=== PATIENT | female | born 1985 | race Caucasian/White ===

== ENCOUNTER 2016-06-05 11:24 | Inpatient (IN) | payer OTHER ==
[2016-06-05 11:46] VITALS: BMI 39.0
[2016-06-05] MEDS ORDERED: PNEUMOC 13-VAL CONJ-DIP CRM/PF 0.5 ML DISP.SYRIN IM ONE (12:50)
--- NOTE | 2016-06-05 14:00 | HP ---
COWS - Scale Resting Pulse: 1= [place] 81-100 Sweatin=Flushed/Facial Moisture Restless Observation: 1= Difficult to Sit Still Pupil Size: 0= Normal to Room Light Bone or Joint Aches: 2= Severe Diffuse Aches Runny Nose/ Eye Tearin= Runny Nose/Eyes GI Upset > 30mins: 1= Stomach Cramp Tremor Observation: 2= Slight Tremor Visible Yawning Observation: 2= >3x During Session Anxiety or Irritability: 2=Irritable/Anxious Goose Flesh Skin: 3=Piloerection COWS Score: 18 Admission ROS BHS - HPI Chief Complaint: I need to stop before i get in too deep. Allergies/Adverse Reactions: Allergies Allergy/AdvReac Type Severity Reaction Status Date / Time cyclobenzaprine HCl AdvReac Verified 06/05/16 13:51 [From Flexeril] kiwi AdvReac Verified 06/05/16 13:51 History of Present Illness: pt is a 31yr old female with a history of opioid dependence first time in detox seeking for treatment. Exam Limitations: No Limitations - Ebola screening Have you traveled outside of the country in the last 21 days: No Have you had contact with anyone from an Ebola affected area: No Have you been sick,other than usual withdrawal symptoms: No Do you have a fever: No - Review of Systems Constitutional: Chills, Diaphoresis, Loss of Appetite, Night Sweats, Changes in sleep, Unintentional Wgt. Loss EENT: reports: Tearing, Nose Congestion Respiratory: reports: Cough Cardiac: reports: Lightheadedness GI: reports: Diarrhea, Poor Appetite, Poor Fluid Intake : reports: No Symptoms Reported Musculoskeletal: reports: Back Pain Integumentary: reports: Flushing, Sweating Neuro: reports: Headache, Tingling, Tremors, Weakness Endocrine: reports: Excessive Sweating, Flushing, Intolerance to Cold, Intolerance to Heat Hematology: reports: Anemia Psychiatric: reports: Judgement Intact, Mood/Affect Appropiate, Orientated x3, Agitated, Anxious Other Systems: Reviewed and Negative Patient History - Patient Medical History Hx Anemia: Yes Hx Asthma: No Hx Chronic Obstructive Pulmonary Disease (COPD): No Hx Cancer: No Hx Cardiac Disorders: No Hx Congestive Heart Failure: No Hx Hypertension: No Hx Hypercholesterolemia: No Hx Pacemaker: No HX Cerebrovascular Accident: No Hx Seizures: No Hx Dementia: No Hx Diabetes: No Hx Gastrointestinal Disorders: No Hx Liver Disease: No Hx Genitourinary Disorders: No Hx Sexually Transmitted Disorders: No Hx Renal Disease (ESRD): No Hx Thyroid Disease: No Hx Human Immunodeficiency Virus (HIV): No (negative) Hx Hepatitis C: No (negative) Hx Depression: Yes Hx Suicide Attempt: No (denies) Hx Schizophrenia: Yes - Patient Surgical History Past Surgical History: Yes Hx Section: Yes Other Surgical History: gall bladder removal Anesthesia Reaction: No - PPD History Previous Implant?: No Documented Results: Negative w/o proof Implanted On Prior R Admission?: No PPD to be Administered?: Yes - Reproductive History Patient is a Female of Child Bearing Age (11 -55 yrs old): Yes Last Menstrual Period: 05/07/16 Patient : No - Smoking Cessation Smoking history: Current every day smoker Have you smoked in the past 12 months: Yes Aproximately how many cigarettes per day: 20 Hx Chewing Tobacco Use: No Initiated information on smoking cessation: Yes 'Breaking Loose' booklet given: 06/05/16 - Substance & Tx. History Hx Substance Use: Yes Substance Use Type: Heroin, Marijuana Hx Substance Use Treatment: Yes - Substances Abused Percocet Route: Oral Frequency: Daily Amount used: 50mg daily Age of first use: 30 Date of Last Use: 06/05/16 Marijuana Route: Smoking Frequency: Daily Amount used: 2 joints daily Age of first use: 26 Date of Last Use: 06/04/16 Family Disease History - Family Disease History Family Disease History: Heart Disease: Father, [place]: Grandparent (stomach [place]) Admission Physical Exam S - Vital Signs Vital Signs: Vital Signs - 24 hr 06/05/16 11:34 Temperature 98.2 F Pulse Rate 90 Respiratory 20 Rate Blood Pressure 126/65 - Physical General Appearance: Yes: Appropriately Dressed, Moderate Distress, Tremorous, Irritable, Sweating, Anxious HEENTM: Yes: Normal Voice, Nasal Congestion Respiratory: Yes: Lungs Clear, Normal Breath Sounds, No Respiratory Distress Neck: Yes: No masses,lesions,Nodules Breast: Yes: Within Normal Limits Cardiology: Yes: Regular Rhythm, Regular Rate, S1, S2 Abdominal: Yes: Normal Bowel Sounds, Non Tender, Soft Genitourinary: Yes: Within Normal Limits Back: Yes: Normal Inspection Musculoskeletal: Yes: full range of Motion Extremities: Yes: Normal Capillary Refill, Normal Inspection, Non-Tender, Tremors Neurological: Yes: Fully Oriented, Alert, Normal Response Integumentary: Yes: Within Normal Limits, Normal Color, Clammy, Diaphoresis Lymphatic: Yes: Within Normal Limits Cleared for Admission [facility] - Detox or Rehab [facility] Level of Care: Medically Managed Detox Regimen/Protocol: Methadone [facility] Breath Alcohol Content Breath Alcohol Content: 0 Urine Pregancy Test - Result Urine Test Results: Negative- NO Line Present Urine Drug Screen - Results Drug Screen Negative: No Urine Drug Screen Results: THC-Marijuana, BZO-Benzodiazepines, OXY-Oxycodone
[2016-06-05] MEDS ORDERED: diphenhydrAMINE HCL 50 MG CAPSULE PO PRN (14:19)
[2016-06-05] MEDS ORDERED: MAG HYDROX/AL HYDROX/SIMETH 30 ML UNIT-DOSE CUP PO PRN (14:19)
[2016-06-05] MEDS ORDERED: MAGNESIUM HYDROX 2400MG/30ML ORAL SUSPENSION 30 ML CUP PO PRN (14:19)
[2016-06-05] MEDS ORDERED: NICOTINE POLACRILEX 4 MG GUM BUC PRN (14:19)
[2016-06-05] MEDS ORDERED: MAGNESIUM CITRATE 300 ML BOTTLE PO PRN (14:19)
[2016-06-05] MEDS ORDERED: LOPERAMIDE HCL 2 MG CAPSULE PO PRN (14:19)
[2016-06-05] MEDS ORDERED: P-EPHED 60MG/TRIPROLIDI 2.5MG TABLET PO PRN (14:19)
[2016-06-05] MEDS ORDERED: MENTHOL/PHENOL 1 EACH UD MM PRN (14:19)
[2016-06-05] MEDS ORDERED: ACETAMINOPHEN 325 MG TABLET (FP) PO PRN (14:19)
[2016-06-05] MEDS ORDERED: guaiFENesin/D-METHORPHAN HB 10 ML UNIT-DOSE CUPS PO PRN (14:19)
[2016-06-05] MEDS ORDERED: METHADONE HCL 10 MG TABLET (FOR DETOX USE ONLY) PO ONE ×2 (15:16→23:00)
[2016-06-05] MEDS: diazePAM 5 MG TABLET PO PRN ×2 (15:38→22:33)
--- NOTE | 2016-06-05 16:06 | EKG ---
Test Reason : Blood Pressure : / mmHG Vent. Rate : 082 BPM Atrial Rate : 082 BPM P-R Int : 172 ms QRS Dur : 084 ms QT Int : 362 ms P-R-T Axes : 043 050 038 degrees QTc Int : 422 ms NORMAL SINUS RHYTHM NORMAL ECG NO PREVIOUS ECGS AVAILABLE Confirmed by DELMY LYNNE MD ([id number]) on 06/05/2016 4:06:24 PM Referred By: John Dukes Confirmed By:DELMY LYNNE MD
--- NOTE | 2016-06-05 17:35 | CONSULT ---
[facility] Psychiatric Consult - Data Date of interview: 06/05/16 Admission source: [facility] Identifying data: First admission to [facility] for this 31 y/o female seeking detox treatment on for opioid and marijuana dependence.Patient is single,a mother of two,domiciled,unemployed and supported on food stamps. Substance Abuse History: - Smoking Cessation. Smoking history: Current every day smoker. Have you smoked in the past 12 months: Yes. Aproximately how many cigarettes per day: 20. Hx Chewing Tobacco Use: No. Initiated information on smoking cessation: Yes. 'Breaking Loose' booklet given: 06/05/16. - Substance & Tx. History. Hx Substance Use: Yes. Substance Use Type: Heroin, Marijuana. Hx Substance Use Treatment: Yes. - Substances Abused. Percocet. Route: Oral. Frequency: Daily. Amount used: 50mg daily. Age of first use: 30. Date of Last Use: 06/05/16. Marijuana. Route: Smoking. Frequency: Daily. Amount used: 2 joints daily. Age of first use: 26. Date of Last Use: . Confirmed by patient in this interview. Medical History: Remarkable for a history of anemia,sickle cell trait and osteoarthritis.Noted past history of cholecystectomy and sections. Psychiatric History: No reported history of psychiatric hospitalizations.Patient states that she was under the care of a private psychiatrist "for a while" until a year ago.Ms Aguilera indicates the diagnosis of " bipolar or schizophrenia ".Has not been on medications for several months ( no recall of names).No particular issue endorsed except for chronic insomnia ( patient remembers zolpidem as an effective remedy).No history of suicide attempts. Physical/Sexual Abuse/Trauma History: Patient denies. Additional Comment: Urine Drug Screen Results: THC-Marijuana, BZO- Benzodiazepines, OXY-Oxycodone.Noted. Mental Status Exam - Mental Status Exam Alert and Oriented to: Time, Place, Person Cognitive Function: Good Patient Appearance: Well Groomed Mood: Hopeful, Euthymic Affect: Appropriate, Normal Range Patient Behavior: Talkative, Appropriate, Cooperative Speech Pattern: Clear, Appropriate Voice Loudness: Normal Thought Process: Intact, Goal Oriented Thought Disorder: Not Present Hallucinations: Denies Suicidal Ideation: Denies Homicidal Ideation: Denies Insight/Judgement: Fair Sleep: Poorly, Difficulty falling asleep Muscle strength/Tone: Normal Gait/Station: Normal Psychiatric Findings - Problem List ([place] 1, 2,3) (1) Opioid dependence Current Visit: Yes Status: Acute (2) Nicotine dependence Current Visit: Yes Status: Acute (3) Cannabis dependence Current Visit: Yes Status: Acute (4) Insomnia Current Visit: Yes Status: Acute - Initial Treatment Plan Initial Treatment Plan: Psychoeducation.Detoxification.Ambien 5 mg po hs prn.Patient made aware of risk of parasomnias.She agrees with plan.Observation.
[2016-06-05 20:11] LABS: URINE APPEARANCE SLCLOUDY; URINE BILIRUBIN NEGATIVE (NEGATIVE); URINE BLOOD NEGATIVE (NEGATIVE); URINE COLOR DKYELLOW; URINE GLUCOSE (UA) NEGATIVE (NEGATIVE); URINE KETONE TRACE (NEGATIVE); URINE LEUK ESTERASE NEGATIVE (NEGATIVE); URINE NITRITE NEGATIVE (NEGATIVE); URINE PROTEIN NEGATIVE (NEGATIVE); URINE UROBILINOGEN NEGATIVE E.U./dl (0.2-1.0)
[2016-06-05] MEDS: ZOLPIDEM TARTRATE 5 MG TABLET PO PRN (22:32)
[2016-06-05] MEDS: THIAMINE HCL 100 MG TABLET (FP) PO SCH (22:33)
[2016-06-06 09:25] LABS: HIV 1 & 2 AB NEGATIVE; HIV 1 AGp24 NEGATIVE
[2016-06-06] MEDS ORDERED: METHADONE HCL 10 MG TABLET (FOR DETOX USE ONLY) PO ONE (10:00)
[2016-06-06 10:11] LABS: MCH 25.2 pg (25.7-33.7); MCHC 32.4 g/dl (32.0-36.0); MEAN CELL VOLUME 77.7 fl (80-96); PLATELET COUNT 297 K/MM3 (134-434); RDW 16.6 % (11.6-15.6); WHITE BLOOD COUNT 9.7 K/mm3 (4.0-10.0)
[2016-06-06] MEDS: diazePAM 5 MG TABLET PO PRN ×3 (10:22→22:22)
[2016-06-06] MEDS: PRENATAL VITAMINS W/ FOLIC ACID TABLET (FP) PO SCH (10:22)
[2016-06-06] MEDS: NICOTINE 21 MG/24 HOURS TOPICAL PATCH TD SCH (10:23)
[2016-06-06] MEDS ORDERED: LIDOCAINE 5% TOPICAL PATCH TP ONE (10:26)
[2016-06-06 10:53] LABS: ALBUMIN 3.9 g/dl (3.4-5.0); ALK PHOS 63 U/L (45-117); ANION GAP 9 (8-16); BILIRUBIN,TOTAL 0.4 mg/dL (0.2-1.0); CALCIUM 8.9 mg/dL (8.5-10.1); CO2 22 mmol/L (21-32); CREATININE 0.5 mg/dL (0.55-1.02); GLUCOSE,RANDOM 94 mg/dL (74-106); SGOT/AST 16 U/L (15-37); SGPT/ALT 20 U/L (12-78)
--- NOTE | 2016-06-06 11:57 | PN ---
[facility] CIWA - CIWA Score Nausea/Vomitin Muscle Tremors: 3 Anxiety: 3 Agitation: 2 Paroxysmal Sweats: 2 Orientation: 0-Oriented Tacttile Disturbances: 2-Mild Itch/Numbness/Burn Auditory Disturbances: 0-None Visual Disturbances: 0-None Headache: 0-None Present CIWA-Ar Total Score: 15 S Progress Note (SOAP) Subjective: interrupted sleep, lbp, diarrhea Objective: 06/06/16 11:54 Vital Signs Temperature 98.2 F 06/06/16 09:39 Pulse Rate 89 06/06/16 09:39 Respiratory Rate 18 06/06/16 09:39 Blood Pressure 126/72 06/06/16 09:39 O2 Sat by Pulse Oximetry (%) Laboratory Tests 06/05/16 06/05/16 06/06/16 13:10 19:00 05:50 WBC 9.7 RBC 4.29 Hgb 10.8 Hct 33.3 MCV 77.7 L MCHC 32.4 RDW 16.6 H Plt Count 297 MPV 10.0 Sodium Potassium Chloride Carbon Dioxide Anion Gap BUN Creatinine Creat Clearance w eGFR Random Glucose Calcium Total Bilirubin AST ALT Alkaline Phosphatase Total Protein Albumin Urine Color Dkyellow Urine Appearance Slcloudy Urine pH 5.0 Ur Specific [place] 1.033 Urine Protein Negative Urine Glucose (UA) Negative Urine Ketones Trace H Urine Blood Negative Urine Nitrite Negative Urine Bilirubin Negative Urine Urobilinogen Negative Ur Leukocyte Esterase Negative RPR Titer HIV 1&2 Antibody Screen Negative HIV P24 Antigen Negative 06/06/16 06/06/16 05:50 05:50 WBC RBC Hgb Hct MCV MCHC RDW Plt Count MPV Sodium 139 Potassium 3.9 Chloride 108 H Carbon Dioxide 22 Anion Gap 9 BUN 10 Creatinine 0.5 L Creat Clearance w eGFR > 60 Random Glucose 94 Calcium 8.9 Total Bilirubin 0.4 AST 16 ALT 20 Alkaline Phosphatase 63 Total Protein 8.0 Albumin 3.9 Urine Color Urine Appearance Urine pH Ur Specific [place] Urine Protein Urine Glucose (UA) Urine Ketones Urine Blood Urine Nitrite Urine Bilirubin Urine Urobilinogen Ur Leukocyte Esterase RPR Titer Nonreactive HIV 1&2 Antibody Screen HIV P24 Antigen pt aox3 in nad ambulating 06/06/16 11:56 Assessment: 06/06/16 11:55 withdrawl sx's lbp anemia 06/06/16 11:56 Plan: cont. detox increase fluids motrin prn imodium prn feso4 325g /d
[2016-06-06] MEDS ORDERED: INFLUENZA VACCINE 45 MCG/0.5 ML (MDV 16-17) IM ONE (12:00)
[2016-06-06] MEDS ORDERED: PNEUMOCOCCAL 23 VACCINE 0.5 ML VIAL IM ONE (12:00)
[2016-06-06] MEDS: ZOLPIDEM TARTRATE 5 MG TABLET PO PRN (22:22)
[2016-06-06] MEDS: THIAMINE HCL 100 MG TABLET (FP) PO SCH (22:22)
[2016-06-07] MEDS ORDERED: METHADONE HCL 5 MG TABLET (FOR DETOX USE ONLY) PO ONE (10:00)
[2016-06-07] MEDS: FERROUS SO4 325 MG TABLET (FP) PO SCH (10:38)
[2016-06-07] MEDS: PRENATAL VITAMINS W/ FOLIC ACID TABLET (FP) PO SCH (10:38)
[2016-06-07] MEDS: diazePAM 5 MG TABLET PO PRN ×2 (10:38→15:13)
[2016-06-07] MEDS: NICOTINE 21 MG/24 HOURS TOPICAL PATCH TD SCH (10:38)
[2016-06-07] MEDS: LIDOCAINE 5% TOPICAL PATCH TP SCH (11:03)
--- NOTE | 2016-06-07 11:42 | PN ---
BHS COWS - Scale Resting Pulse: 1= [place] 81-100 Sweatin=Flushed/Facial Moisture Restless Observation: 1= Difficult to Sit Still Pupil Size: 0= Normal to Room Light Bone or Joint Aches: 2= Severe Diffuse Aches Runny Nose/ Eye Tearin= Nasal Congestion GI Upset > 30mins: 1= Stomach Cramp Tremor Observation of Outstretched Hands: 2= Slight Tremor Visible Yawning Observation: 0= None Anxiety or Irritability: 2=Irritable/Anxious Goose Flesh Skin: 0=Smooth Skin COWS Score: 12 BHS Progress Note (SOAP) Subjective: agitation irritable sweats interrupted sleep Objective: 06/07/16 11:40 Vital Signs Temperature 97.9 F 06/07/16 09:43 Pulse Rate 97 H 06/07/16 09:43 Respiratory Rate 18 06/07/16 09:43 Blood Pressure 124/74 06/07/16 09:43 O2 Sat by Pulse Oximetry (%) Laboratory Tests 06/05/16 06/05/16 06/06/16 13:10 19:00 05:50 WBC 9.7 RBC 4.29 Hgb 10.8 Hct 33.3 MCV 77.7 L MCHC 32.4 RDW 16.6 H Plt Count 297 MPV 10.0 Sodium Potassium Chloride Carbon Dioxide Anion Gap BUN Creatinine Creat Clearance w eGFR Random Glucose Calcium Total Bilirubin AST ALT Alkaline Phosphatase Total Protein Albumin Urine Color Dkyellow Urine Appearance Slcloudy Urine pH 5.0 Ur Specific [place] 1.033 Urine Protein Negative Urine Glucose (UA) Negative Urine Ketones Trace H Urine Blood Negative Urine Nitrite Negative Urine Bilirubin Negative Urine Urobilinogen Negative Ur Leukocyte Esterase Negative RPR Titer HIV 1&2 Antibody Screen Negative HIV P24 Antigen Negative 06/06/16 06/06/16 05:50 05:50 WBC RBC Hgb Hct MCV MCHC RDW Plt Count MPV Sodium 139 Potassium 3.9 Chloride 108 H Carbon Dioxide 22 Anion Gap 9 BUN 10 Creatinine 0.5 L Creat Clearance w eGFR > 60 Random Glucose 94 Calcium 8.9 Total Bilirubin 0.4 AST 16 ALT 20 Alkaline Phosphatase 63 Total Protein 8.0 Albumin 3.9 Urine Color Urine Appearance Urine pH Ur Specific [place] Urine Protein Urine Glucose (UA) Urine Ketones Urine Blood Urine Nitrite Urine Bilirubin Urine Urobilinogen Ur Leukocyte Esterase RPR Titer Nonreactive HIV 1&2 Antibody Screen HIV P24 Antigen awake/alert ambulating no acute distress Assessment: 06/07/16 11:40 withdrawal sx Plan: continue detox increase fluids
[2016-06-07] MEDS ORDERED: ZOLPIDEM TARTRATE 10 MG TABLET (PARK CARE ONLY) PO PRN (12:21)
[2016-06-07] MEDS: hydrOXYzine PAMOATE 50 MG CAPSULE (FP) PO PRN (14:06)
[2016-06-07] MEDS: IBUPROFEN 400 MG TABLET (FP) PO PRN (14:07)
[2016-06-07] MEDS: THIAMINE HCL 100 MG TABLET (FP) PO SCH (22:29)
[2016-06-08] MEDS ORDERED: METHADONE HCL 5 MG TABLET (FOR DETOX USE ONLY) PO ONE (10:00)
[2016-06-08] MEDS: PRENATAL VITAMINS W/ FOLIC ACID TABLET (FP) PO SCH (10:18)
[2016-06-08] MEDS: FERROUS SO4 325 MG TABLET (FP) PO SCH (10:18)
[2016-06-08] MEDS: NICOTINE 21 MG/24 HOURS TOPICAL PATCH TD SCH (10:19)
[2016-06-08] MEDS: LIDOCAINE 5% TOPICAL PATCH TP SCH (10:20)
[2016-06-08] MEDS: diazePAM 5 MG TABLET PO PRN (10:20)
--- NOTE | 2016-06-08 13:05 | PN ---
BHS Progress Note (SOAP) Subjective: FEELING GOOD, WANTS TO LEAVE TOMORROW Objective: 06/08/16 13:03 Vital Signs Temperature 97.9 F 06/08/16 10:09 Pulse Rate 100 H 06/08/16 10:09 Respiratory Rate 16 06/08/16 10:09 Blood Pressure 117/66 06/08/16 10:09 O2 Sat by Pulse Oximetry (%) Laboratory Tests 06/05/16 06/05/16 06/06/16 13:10 19:00 05:50 WBC 9.7 RBC 4.29 Hgb 10.8 Hct 33.3 MCV 77.7 L MCHC 32.4 RDW 16.6 H Plt Count 297 MPV 10.0 Sodium Potassium Chloride Carbon Dioxide Anion Gap BUN Creatinine Creat Clearance w eGFR Random Glucose Calcium Total Bilirubin AST ALT Alkaline Phosphatase Total Protein Albumin Urine Color Dkyellow Urine Appearance Slcloudy Urine pH 5.0 Ur Specific [place] 1.033 Urine Protein Negative Urine Glucose (UA) Negative Urine Ketones Trace H Urine Blood Negative Urine Nitrite Negative Urine Bilirubin Negative Urine Urobilinogen Negative Ur Leukocyte Esterase Negative RPR Titer HIV 1&2 Antibody Screen Negative HIV P24 Antigen Negative 06/06/16 06/06/16 05:50 05:50 WBC RBC Hgb Hct MCV MCHC RDW Plt Count MPV Sodium 139 Potassium 3.9 Chloride 108 H Carbon Dioxide 22 Anion Gap 9 BUN 10 Creatinine 0.5 L Creat Clearance w eGFR > 60 Random Glucose 94 Calcium 8.9 Total Bilirubin 0.4 AST 16 ALT 20 Alkaline Phosphatase 63 Total Protein 8.0 Albumin 3.9 Urine Color Urine Appearance Urine pH Ur Specific [place] Urine Protein Urine Glucose (UA) Urine Ketones Urine Blood Urine Nitrite Urine Bilirubin Urine Urobilinogen Ur Leukocyte Esterase RPR Titer Nonreactive HIV 1&2 Antibody Screen HIV P24 Antigen PT AOX3 SITTING COLORING IN NAD Assessment: 06/08/16 13:04 WITHDRAWL SX'S Plan: CONT DETOX INCREASE FLUIDS EARLY D/C ON 06/09/16.
--- NOTE | 2016-06-08 14:26 | PN ---
Psychiatric Progress Note Vital Signs: Vital Signs Period Temp Pulse Resp BP Sys/Mclain Pulse Ox Last 24 Hr 97.9 F-99.1 F 71-112 16-18 112-126/66-77 Date of Session: 06/08/16 Chief Complaint:: Insomnia HPI: Patient reprots insomnia, asking to increase sleeping pill dose Current Medications: Active Medications Generic Name Dose Route Start Last Admin Trade Name Freq PRN Reason Stop Dose Admin Acetaminophen 650 mg 06/05/16 14:19 Tylenol - PO Q4H PRN FEVER OR PAIN Al Hydroxide/Mg Hydroxide 30 ml 06/05/16 14:19 Mylanta Oral Suspension - PO Q6H PRN DYSPEPSIA Diphenhydramine HCl 50 mg 06/05/16 14:19 Benadryl - PO HSMR1 PRN INSOMNIA Eucalyptus/Menthol/Phenol/Sorbitol 1 each 06/05/16 14:19 Cepastat Lozenge - MM Q4H PRN SORE THROAT Ferrous Sulfate 325 mg 06/07/16 10:00 06/08/16 10:18 Feosol - PO 325 mg DAILY TINO Administration Guaifenesin 10 ml 06/05/16 14:19 Robitussin Dm - PO Q6H PRN COUGH Hydroxyzine Pamoate 50 mg 06/05/16 14:19 06/07/16 14:06 Vistaril - PO 50 mg Q4H PRN Administration AGITATION Ibuprofen 400 mg 06/05/16 14:19 06/07/16 14:07 Motrin - PO 400 mg Q6H PRN Administration SEVERE PAIN Lidocaine 1 patch 06/07/16 10:00 06/08/16 10:20 Lidoderm Patch - TP 1 patch DAILY TINO Administration Loperamide HCl 4 mg 06/05/16 14:19 Imodium - PO Q6H PRN DIARRHEA Magnesium Citrate 300 ml 06/05/16 14:19 Citroma - PO Q48H PRN CONSTIPATION Magnesium Hydroxide 30 ml 06/05/16 14:19 Milk Of Magnesia - PO DAILY PRN CONSTIPATION Methadone HCl 10 mg 06/09/16 10:00 Dolophine - PO 06/09/16 10:01 ONCE ONE Methadone HCl 5 mg 06/10/16 06:00 Dolophine - PO 06/10/16 06:01 ONCE@0600 ONE Nicotine 21 mg 06/06/16 10:00 06/08/16 10:19 Nicoderm Patch - TD Not Given DAILY TINO Nicotine Polacrilex 4 mg 06/05/16 14:19 Nicorette Gum - BUC Q2H PRN NICOTINE REPLACEMENT RX Multivit/Folic Acid/Iron 1 tab 06/06/16 10:00 06/08/16 10:18 Vitamins (Sjr) - PO 1 tab DAILY TINO Administration Pseudoephedrine/Triprolidine 1 combo 06/05/16 14:19 Actifed - PO TID PRN NASAL CONGESTION Thiamine HCl 100 mg 06/05/16 22:00 06/07/16 22:29 Vitamin B1 - PO 100 mg HS TINO Administration Zolpidem Tartrate 10 mg 06/07/16 12:21 06/07/16 22:30 Ambien - PO 06/08/16 17:49 10 mg HS PRN Administration INSOMNIA Medication(s) Change(s): Ambien 10mg po qhs Mental Status Exam - Mental Status Exam Cognitive Function: Fair Patient Appearance: Well Groomed Mood: Apprehensive Affect: Mood Congruent Patient Behavior: Cooperative Speech Pattern: Appropriate Voice Loudness: Normal Thought Process: Goal Oriented Thought Disorder: Being Controlled Hallucinations: Denies Suicidal Ideation: Denies Homicidal Ideation: Denies Insight/Judgement: Fair Sleep: Difficulty falling asleep Appetite: Weight gain Muscle strength/Tone: Normal Gait/Station: Normal Additional Comments: Ambien 10mg po qhs Psychiatric Treatment Plan - Problem List (1) Cannabis dependence Current Visit: Yes (2) Nicotine dependence Current Visit: Yes (3) Opioid dependence Current Visit: Yes (4) Drug-induced mood disorder Current Visit: Yes Initial treatment plan: Ambien 10mg po qhs
[2016-06-08] MEDS: hydrOXYzine PAMOATE 50 MG CAPSULE (FP) PO PRN ×2 (15:38→21:55)
[2016-06-08] MEDS: IBUPROFEN 400 MG TABLET (FP) PO PRN (21:55)
[2016-06-08] MEDS ORDERED: ZOLPIDEM TARTRATE 5 MG TABLET PO PRN (22:00)
[2016-06-08] MEDS: THIAMINE HCL 100 MG TABLET (FP) PO SCH (22:35)
[2016-06-09] MEDS: hydrOXYzine PAMOATE 50 MG CAPSULE (FP) PO PRN (05:46)
[2016-06-09] MEDS: PRENATAL VITAMINS W/ FOLIC ACID TABLET (FP) PO SCH (09:03)
[2016-06-09] MEDS: FERROUS SO4 325 MG TABLET (FP) PO SCH (09:03)
[2016-06-09] MEDS: LIDOCAINE 5% TOPICAL PATCH TP SCH (09:04)
--- NOTE | 2016-06-09 09:47 | DS ---
[facility] Detox Discharge Summary Admission Date: 06/05/16 Discharge Date: 06/09/16 - History Present History: Cannabis Dependence, Opioid Dependence - Physical Exam Results Vital Signs: Vital Signs Temperature 97.5 F L 06/09/16 07:17 Pulse Rate 78 06/09/16 07:17 Respiratory Rate 18 06/09/16 07:17 Blood Pressure 119/75 06/09/16 07:17 O2 Sat by Pulse Oximetry (%) - Treatment Hospital Course: Detox Protocol Followed, Detoxed Safely, Responded well, Discharged Condition Good, Rehab Referral Accepted - Medication Discharge Medications: Ambulatory Orders Zolpidem Tartrate [Ambien] 10 mg PO HS PRN #14 tablet MDD 10 06/08/16 - Diagnosis (1) Cannabis dependence Current Visit: Yes Status: Chronic (2) Drug-induced mood disorder Current Visit: Yes Status: Chronic (3) Insomnia Current Visit: Yes Status: Chronic (4) Nicotine dependence Current Visit: Yes Status: Chronic Qualifiers: Nicotine product type: cigarettes Substance use status: uncomplicated Qualified Code(s): F17.210 - Nicotine dependence, cigarettes, uncomplicated (5) Opioid dependence Current Visit: Yes Status: Chronic Qualifiers: Substance use status: uncomplicated Qualified Code(s): F11.20 - Opioid dependence, uncomplicated - AMA Did Patient Leave Against Medical Advice: No
[2016-06-09] MEDS ORDERED: METHADONE HCL 10 MG TABLET (FOR DETOX USE ONLY) PO ONE (10:00)
[2016-06-09 10:05] VITALS: BP 118/73; PULSE 102; TEMP 98.6
[2016-06-10] MEDS ORDERED: METHADONE HCL 5 MG TABLET (FOR DETOX USE ONLY) PO ONE (06:00)
== END 2016-06-09 09:44 | disposition home or self-care (01) | DRG 773 ==
LOC: YASAS 11:24 → Y6N 13:55
PROVIDERS: ADMIT Internal Medicine Addiction Medicine; ATTEND Internal Medicine Addiction Medicine
PROC: HZ2ZZZZ Detoxification Services for Substance Abuse Treatment (ICD-10-PCS; principal; 2016-06-05)
DX: F11.23 Opioid dependence with withdrawal (principal); F12.20 Cannabis dependence, uncomplicated; F17.210 Nicotine dependence, cigarettes, uncomplicated; F19.24 Other psychoactive substance dependence with psychoactive substance-induced mood disorder; G47.00 Insomnia, unspecified; M54.5 Low back pain; D64.9 Anemia, unspecified; D57.3 Sickle-cell trait
CPT/HCPCS: 36415; 80053; 81003; 85027; 86593; 87389; 90732; 93005; 93010; G0009